=== PATIENT | female | born 1945 | race Caucasian/White ===

== ENCOUNTER 2018-04-04 08:47 | Day surgery (SDC) ==
[2016-01-19 17:58] VITALS: BMI 30.2
[2018-04-04] MEDS: BETADINE OPTH PREP OP PRN ×2 (10:00→10:27)
[2018-04-04] MEDS: TETRACAINE 0.5% UNIT-DOSE OP PRN ×3 (10:00→10:44)
[2018-04-04] MEDS: CYCLOGYL 2% OPTH OP PRN ×3 (10:01→10:11)
[2018-04-04] MEDS ORDERED: ZOFRAN 4 MG/2 ML IVP ONE (10:15)
[2018-04-04] MEDS ORDERED: BRIMONIDINE TARTRATE 0.2% OPTH SOL OP PRN (10:15)
[2018-04-04] MEDS ORDERED: LIDOCAINE 1% 20 ML MDV ID STA (10:15)
[2018-04-04] MEDS: BSS WITH EPINEPHRINE OP ONE ×2 (10:30→10:46)
[2018-04-04] MEDS: DEX-MOXI-KETOR OPTH INJ 1/0.5/0.4 MG/ML IO ONE ×2 (10:30→10:46)
[2018-04-04] MEDS: LIDOCAINE 1%/PHENYLEPHRINE 1.5% BSS (SURGERY) INTRAOCULA ONE ×2 (10:31→10:46)
[2018-04-04] MEDS ORDERED: ZOFRAN 4 MG/2 ML ONE (10:32)
[2018-04-04] MEDS ORDERED: VERSED ONE (10:32)
[2018-04-04] MEDS ORDERED: SUBLIMAZE ONE (10:32)
[2018-04-04 11:29] VITALS: TEMP 97.5
[2018-04-05 12:34] VITALS: BP 128/67
== END 2018-04-04 11:35 | disposition home or self-care (01) ==
LOC: SURG 08:47
PROVIDERS: ATTEND Ophthalmology
DX: H25.12 Age-related nuclear cataract, left eye (principal)